=== PATIENT | female | born 1975 | race Caucasian/White ===

== ENCOUNTER 2020-06-15 18:30 | Outpatient (RCR) | payer OTHER, SELFPAY ==
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
--- NOTE | 2020-08-10 10:39 | HP.PT.NRP ---
LORELEI SHAH was seen in my office for initial evaluation on 05/29/20. The following Plan of Care was established for this patient: Initial Frequency: 1-2x /Week Initial Duration: 4 Weeks Patient/Client Instruction: Educate patient on: Condition, Plan of Care For the Purpose of:: To decrease pain, To increase ROM, To improve muscle performance and motor function, To improve ability to perform ADL's, To increase tolerance to activity/condition/position, To improve ability of physical actions for home/community/work/leisure, To improve health of tissue, To decrease soft tissue restriction, To increase flexibility/ROM, To reduce risk of recurrence, To improve ability to perform tasks related to life management Therapeutic Exercise to Include: Strength training, Balance training, Active ROM For the Purpose of:: To decrease pain, To increase ROM, To improve muscle performance and motor function, To increase tolerance to activity/condition/position, To improve performance and independence with ADL's, To improve ability of physical actions for home/community/work/leisure, To improve health of tissue, To decrease soft tissue restriction, To reduce risk of recurrence, To improve ability to perform tasks related to life management TENS: Yes IF ES: Yes Cryotherapy (ice pack, ice massage): Yes Thermo therapy (hot pack): Yes Ultrasound (thermal/non thermal): Yes For the Purpose of:: To decrease pain, To increase ROM, To improve muscle performance and motor function, To improve ability to perform ADL's, To increase tolerance to activity/condition/position, To improve ability of physical actions for home/community/work/leisure, To improve health of tissue, To decrease soft tissue restriction, To reduce risk of recurrence, To improve ability to perform tasks related to life management This patient was last seen in our office . Pertinent comments regarding their Physical therapy will appear below: Patient d/c due to under going surgery for knee> At this point I will be discontinuing this patient from physical therapy. I would be happy to see this patient again in the future if found appropriate by the physician. Thank you! Facundo Oates, PT, Cert MDT, OCS
== END 2020-06-15 19:00 | disposition home or self-care (01) ==
LOC: PT 18:30
PROVIDERS: PCP Family Medicine; Referring Provider Family Medicine; Visit Provider Family Medicine
DX: S83.104D Unspecified dislocation of right knee, subsequent encounter (principal)
CPT/HCPCS: 97014; 97110; 97161; G0283

== ENCOUNTER → 2020-10-08 18:14 | Outpatient (CLI) | payer OTHER, SELFPAY | PROVIDERS: PCP Family Medicine; Referring Provider Family Medicine; Visit Provider Family Medicine | DX: Z02.9 Encounter for administrative examinations, unspecified (principal) | CPT/HCPCS: 87635; C9803; U0003 ==

== ENCOUNTER 2020-10-20 07:00 | Outpatient (RCR) | payer OTHER, SELFPAY ==
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
--- NOTE | 2021-01-22 15:19 | HP.PTDCNRP_ITS ---
LORELEI SHAH was seen in my office for initial evaluation on 08/10/20. The following Plan of Care was established for this patient: Initial Frequency: 3x /Week Initial Duration: 3 Months Patient/Client Instruction: Educate patient on: Condition, Plan of Care For the Purpose of:: To decrease pain, To increase ROM, To improve muscle performance and motor function, To improve ability to perform ADL's, To increase tolerance to activity/condition/position, To improve performance and i ndependence with ADL's, To improve ability of physical actions for home/community/work/leisure, To improve gait and locomotor functions, To improve health of tissue, To decrease soft tissue restriction, To increase flexibility/ROM, To improve endurance, To improve balance, To improve ability to perform tasks related to life management Therapeutic Exercise to Include: Strength training, Endurance training, Balance training, Postural training, Flexibilty training, Passive ROM, Active ROM For the Purpose of:: To decrease pain, To increase ROM, To improve muscle performance and motor function, To improve ability to perform ADL's, To increase tolerance to activity/condition/position, To improve ability of physical actions for home/community/work/leisure, To improve gait and locomotor functions, To improve health of tissue, To decrease soft tissue restriction, To increase flexibility/ROM, To improve endurance, To improve balance, To improve ability to perform tasks related to life management Functional electric stimulation: Yes TENS: Yes Cryotherapy (ice pack, ice massage): Yes Vasopneumatic device: Yes For the Purpose of:: To decrease pain, To decrease swelling/inflammation, To increase ROM, To improve nutrient delivery to tissue, To increase oxygenation perfusion, To improve health of tissue, To decrease soft tissue restriction This patient was last seen in our office . Pertinent comments regarding their Physical therapy will appear below: Patient seen for PT for ACL reconstruction with protocal. Doing well thus d/c At this point I will be discontinuing this patient from physical therapy. I would be happy to see this patient again in the future if found appropriate by the physician. Thank you! Facundo Oates, PT, Cert MDT, OCS
== END 2020-10-20 19:00 | disposition home or self-care (01) ==
LOC: PT 07:00
PROVIDERS: PCP Family Medicine
DX: M23.51 Chronic instability of knee, right knee (principal)
CPT/HCPCS: 97110; 97161

== ENCOUNTER → 2021-05-03 16:14 | Outpatient (CLI) | payer OTHER, SELFPAY ==
[2021-04-14 11:38] VITALS: BMI 23.8
--- NOTE | 2021-05-03 16:27 | US_ITS ---
STUDY: ULTRASOUND OF THE FEMALE PELVIS - COMPLETE REASON FOR EXAM: Female, 45 years old. Abnormal uterine bleeding LMP: 04/22/2021. TECHNIQUE: Transabdominal and Transvaginal TECHNICAL QUALITY: Adequate. COMPARISON: None. FINDINGS: The uterus is anteverted and is in a midline position. The uterus measures 7.7 cm x 5.2 cm x 3.8 cm. There is a Nabothian cyst of the cervix. The endometrium measures 3 mm in thickness, and is hyperechoic. There is no demonstrated endometrial mass. There is heterogeneous appearance of the myometrium. There are 2 small uterine fibroids. The larger measures 1.2 cm x 1.1 cm x 1.1 cm. I.U.D. - The patient does not have an I.U.D. The right ovary is visualized. The right ovary measures 2.4 cm x 2.2 cm x 1.2 cm. There is no right ovarian cyst or ovarian mass. There is no visualized right adnexal mass or complex lesion. There is normal arterial and normal venous vascularity. The left ovary is visualized. The left ovary measures 3.1 cm x 2.6 cm x 2 cm. There is a 2 cm x 1.8 cm x 1.8 cm septated cyst. There is no visualized left adnexal mass or complex lesion. There is normal arterial and normal venous vascularity. There is no fluid in the cul-de-sac. The pre void volume of the bladder was 361 ml. US/Transvaginal Non- IMPRESSION: And heterogeneous appearance of the myometrium with 2 small uterine fibroids. Small left ovarian cyst. Electronically Signed: Shaquille Ronquillo MD at 15:00 EDT , Service support ,
--- NOTE | 2021-05-03 16:27 | US_ITS ---
STUDY: ULTRASOUND OF THE FEMALE PELVIS - COMPLETE REASON FOR EXAM: Female, 45 years old. Abnormal uterine bleeding LMP: 04/22/2021. TECHNIQUE: Transabdominal and Transvaginal TECHNICAL QUALITY: Adequate. COMPARISON: None. FINDINGS: The uterus is anteverted and is in a midline position. The uterus measures 7.7 cm x 5.2 cm x 3.8 cm. There is a Nabothian cyst of the cervix. The endometrium measures 3 mm in thickness, and is hyperechoic. There is no demonstrated endometrial mass. There is heterogeneous appearance of the myometrium. There are 2 small uterine fibroids. The larger measures 1.2 cm x 1.1 cm x 1.1 cm. I.U.D. - The patient does not have an I.U.D. The right ovary is visualized. The right ovary measures 2.4 cm x 2.2 cm x 1.2 cm. There is no right ovarian cyst or ovarian mass. There is no visualized right adnexal mass or complex lesion. There is normal arterial and normal venous vascularity. The left ovary is visualized. The left ovary measures 3.1 cm x 2.6 cm x 2 cm. There is a 2 cm x 1.8 cm x 1.8 cm septated cyst. There is no visualized left adnexal mass or complex lesion. There is normal arterial and normal venous vascularity. There is no fluid in the cul-de-sac. The pre void volume of the bladder was 361 ml. US/Pelvic (Non ) IMPRESSION: And heterogeneous appearance of the myometrium with 2 small uterine fibroids. Small left ovarian cyst. Electronically Signed: Shaquille Ronquillo MD at 15:00 EDT , Service support ,
[2021-05-03 17:49] LABS: Prolactin 11.3 ng/mL; Thyroid Stim Hormone (TSH) 1.11 uIU/mL (0.358-3.74)
== END ==
PROVIDERS: PCP Family Medicine; Referring Provider Obstetrics & Gynecology; Visit Provider Obstetrics & Gynecology
DX: N93.9 Abnormal uterine and vaginal bleeding, unspecified (principal)
CPT/HCPCS: 36415; 76830; 76856; 84146; 84443

== ENCOUNTER → 2021-05-07 | Outpatient (CLI) | payer OTHER, SELFPAY ==
[2021-05-07 14:34] VITALS: BMI 23.8
[2021-05-14 22:21] LABS: HPV APTIMA, High Risk Positive (Negative)
== END | disposition home or self-care (01) ==
LOC: LABSPEC 16:35
PROVIDERS: PCP Family Medicine; Visit Provider Obstetrics & Gynecology
DX: Z12.4 Encounter for screening for malignant neoplasm of cervix (principal)
CPT/HCPCS: 87624; 88175; G0145

== ENCOUNTER → 2021-06-03 16:26 | Outpatient (CLI) | payer OTHER, SELFPAY ==
[2021-05-07 14:34] VITALS: BMI 23.8
--- NOTE | 2021-06-03 16:33 | BI_ITS ---
MAMMOGRAPHY - BILATERAL SCREENING REASON FOR EXAM: Female, 45 years old. Routine annual screening examination. PERTINENT HISTORY: Grandmother with breast cancer. TECHNIQUE: Digital bilateral breast mariajose (3D mammographic acquisition) in the CC and MLO projections. 2-D mediolateral oblique (MLO) and craniocaudad (CC) views of both breasts were obtained. CAD: Full Field Digital Mammography with Computer Added Detection was performed. COMPARISON: None. Baseline examination. FINDINGS: Breast Composition: The breasts are heterogeneously dense, which may obscure small masses. Questionable 7.1 mm nodular density in the central slightly lateral aspect of the right breast. Correlation with ultrasound is recommended. No other significant abnormalities are identified. BI/SCRN MAMM (CAD)W/MARIAJOSE BILAT IMPRESSION: Possible 7.1 mm nodular density in the central slightly lateral aspect of the right breast. Correlation with ultrasound is recommended. ASSESSMENT CATEGORY: BIRADS Category 0: Incomplete. Need additional imaging evaluation. A letter regarding these results will be sent to the patient by the facility within 30 days. Approximately 10% of breast cancers are not detected by mammography. A normal mammogram should not delay biopsy of a clinically suspicious abnormality. [id number] Electronically Signed: Shaquille Ronquillo MD at 9:08 EDT , Service support ,
== END ==
PROVIDERS: PCP Family Medicine; Referring Provider Obstetrics & Gynecology; Visit Provider Obstetrics & Gynecology
DX: Z12.31 Encounter for screening mammogram for malignant neoplasm of breast (principal)
CPT/HCPCS: 77063; 77067

== ENCOUNTER → 2021-06-08 15:30 | Outpatient (CLI) | payer OTHER, SELFPAY ==
[2021-05-07 14:34] VITALS: BMI 23.8
--- NOTE | 2021-06-08 15:37 | US_ITS ---
STUDY: ULTRASOUND BREAST - RIGHT REASON FOR EXAM: Female, 45 years old. Abnormal screening mammogram. TECHNIQUE: Axial and longitudinal images of the RIGHT breast were performed with a high resolution ultrasound transducer. # OF IMAGES: 71 COMPARISON: Comparison is made with prior mammogram dated 06/03/2021. FINDINGS: RIGHT Breast: There is a 3 mm x 3 mm x 3 mm cyst at the 10 o''clock position of the breast at 7 cm from the nipple. US/Breast Limited Unilateral IMPRESSION: 3 mm x 3 mm x 3 mm cyst at the 10 o''clock position of the breast about 7 cm from the nipple. ASSESSMENT CATEGORY: BIRADS Category 2: Benign. A letter regarding these results will be sent to the patient by the facility within 30 days. Electronically Signed: Shaquille Ronquillo MD at 8:25 EDT , Service support ,
== END ==
PROVIDERS: PCP Family Medicine; Referring Provider Obstetrics & Gynecology; Visit Provider Obstetrics & Gynecology
DX: R92.8 Other abnormal and inconclusive findings on diagnostic imaging of breast (principal)
CPT/HCPCS: 76642

== ENCOUNTER → 2021-06-17 | Outpatient (CLI) | payer OTHER, SELFPAY ==
--- NOTE | 2021-06-17 | IMM_PTH ---
PATIENT: LORELEI SHAH LOC: [facility] U#:[id number] AGE/SX: 45/F ROOM: RE06/17/[address]: Dr. Jayashree Higuera MD : 1975 BED: DIS: 06/17/2021 SPEC #: [id number] RECD: 06/21/21 14:27 STATUS: RIDGE REQ #: [id number] TYSON: 06/17/21 00:[address]: Jayashree Higuera DEPT: IMMUNOHISTOCHEMISTRY RECD BY: Emily Monson ENTERED: 06/21/21 14:28 SP TYPE: IMMUNO OTHR DR: Dr. Bean Higuera MD Tissues: A - Endocervical B - Uterine cervix, NOS Procedures: p16 (initial) KI-67 (add) PHYSICIAN & INSTITUTION [place] [id number] SPECIMEN INFORMATION: Tissue Source: A ? ECC, B ? Cervix at 12 o?clock Clinical Info: ASCUS, HPV positive Specimen Number: [id number] A & B CPT code: 25396 x2, 60591 x2 METHODOLOGY: Deparaffinized sections of prefer/formalin-fixed tissue or PAP/DQ stained slides are incubated with monoclonal/polyclonal antibodies/oligonucleotide probes. Localization is made via biotin free immunoperoxidase method. Appropriate controls are performed and reacted as expected. Results on target cell population are indicated in the following table: RESULTS: ANTIBODY / CLONE RESULT Block A P16 (E6H4) negative Ki-67 (30-9) negative Block B P16 (E6H4) negative Ki-67 (30-9) positive, low These tests were developed and their performance characteristics determined by [facility]. They may not have been cleared or approved by the U.S. Food and Drug Administration. The FDA has determined that such clearance or approval is not necessary. The above immunohistochemical/dualISH markers are ordered and reviewed by the Pathologist. INTERPRETATION: A. Endocervix, curettings (cell block): Negative for dysplasia. B. Cervix at 12 o?clock, biopsy: Focal minimal changes suspicious for HPV cytopathic effects. SJ:orquidea 06/22/2021
--- NOTE | 2021-06-17 15:00 | CER_PTH ---
PATIENT: LORELEI SHAH [id number] AGE/SX: 45/F ROOM: RE06/17/[address]: Dr. Jayashree Higuera MD : 1975 BED: DIS: 06/17/2021 SPEC #: [id number] RECD: 06/18/21 07:58 STATUS: RIDGE REMargarita #: [id number] TYSON: 06/17/21 15:[address]: Jayashree Higuera DEPT: SURGICAL PATHOLOGY RECD BY: Jessica Patel ENTERED: 06/18/21 07:58 SP TYPE: CERV OTHR DR: Dr. Bean Higuera MD Tissues: A - Endocervical B - Uterine cervix, NOS Procedures: Surgery Specimen Level IV HEADER OPERATION: Colposcopy PRE-OP DIAGNOSIS: ASCUS, HPV positive TISSUE SUBMITTED: A ? ECC, B ? 12 o?clock MICROSCOPIC DIAGNOSIS A. ECC: Scant fragments of benign ecto- and endocervical epithelium with focal atypia, favor reactive atypia. See comment. B. Cervix, 12 o?clock, biopsy: Focal minimal changes suspicious for HPV cytopathic effects. Chronic inflammation and reactive changes. See comment. EMILY:orquidea 06/22/2021 COMMENT A & B. Immunohistochemistry ([id number]) for surrogate HPV marker (p16) supports the above diagnosis. Case has been reviewed in consultation with Dr. Bradley who concurs with the above diagnosis. IDC:AM MICROSCOPIC DESCRIPTION Slides are reviewed. GROSS DESCRIPTION A - Received is one container labeled with the patient's name and not further designated. The specimen consists of a scant amount of soft tissue. The specimen is totally submitted for cell block preparation in one cassette. B - Received in fixative is one container labeled with the patient's name and designated 12 o'clock. The specimen consists of a fragment of johnson soft tissue measuring 0.3 x 0.3 x 0.1 cm. The specimen is totally submitted in one cassette. / EMILY:orquidea 06/18/21 TC:5 CPT: 94755 x2
== END | disposition home or self-care (01) ==
LOC: LABSPEC 16:27
PROVIDERS: PCP Family Medicine; Referring Provider Obstetrics & Gynecology; Visit Provider Obstetrics & Gynecology
DX: R87.610 Atypical squamous cells of undetermined significance on cytologic smear of cervix (ASC-US) (principal)
CPT/HCPCS: 88305; 88341; 88342

== ENCOUNTER 2021-07-06 06:04 | Day surgery (SDC) | payer OTHER, SELFPAY ==
[2021-05-07 14:34] VITALS: BMI 23.8
--- NOTE | 2021-06-29 12:26 | EKG12_ITS ---
Test Reason : PREOP Blood Pressure : / mmHG Vent. Rate : 073 BPM Atrial Rate : 073 BPM P-R Int : 142 ms QRS Dur : 080 ms QT Int : 398 ms P-R-T Axes : 064 055 064 degrees QTc Int : 438 ms Normal sinus rhythm Normal ECG Confirmed by OTTO VELASCO, FOUZIA ([id number]), multimedia editor JUAN MIGUEL BARCLAY ([id number]) on 06/30/2021 9:19:22 AM Referred By: Jayashree Higuera Confirmed By:FOUZIA MENJIVAR MD
[2021-06-29 13:49] LABS: Hematocrit 41.7 % (37-47); Hemoglobin 14.2 g/dL (12.0-15.0); Mean Corp Hgb Conc 34.1 g/dL (32-36); Mean Corpuscular Hgb 30.5 pg (27.0-32.0); Mean Corpuscular Volume 89.5 fL (81-99); Mean Platelet Vol. 10.1 fl (6.2-12.0); Platelet Count 342 K/mm3 (150-450); RBC Distribution Width CV 12.8 % (11.6-14.6); RBC Distribution Width SD 42.3 fl (35.1-43.9); Red Blood Count 4.66 M/mm3 (4.2-5.4); White Blood Count 6.4 K/mm3 (4.4-11.0)
[2021-06-29 14:05] LABS: Partial Thromboplast Time 31.5 Seconds (24.1-36.2)
[2021-06-29 14:34] LABS: Prothrombin Time (Protime)PT. 12.3 SECONDS (11.7-14.9)
[2021-06-29 14:40] LABS: AST(SGOT) 20 U/L (15-37); Alanine Aminotransfer ALT/SGPT 23 U/L (13-56); Alkaline Phosphatase 49 U/L (45-117); Anion Gap 4 (5-15); BUN 10 mg/dL (7-18); BUN/Creat Ratio 14.6 RATIO (10-20); Bilirubin, Direct 0.12 mg/dL (0.00-0.30); Calcium,Total 9.5 mg/dL (8.5-10.1); Chloride 107 mmol/L (98-107); Creatinine, Serum 0.68 mg/dL (0.55-1.02); EST Glomerular Filtration Rate 99 mL/min (>60); Est Glom Filt Rate - Afr Amer 120 mL/min (>60); Globulin 3.6 g/dL (2.2-4.2); Glucose 88 mg/dL (74-106); Magnesium 2.4 mg/dL (1.6-2.6); Potassium 3.9 mmol/L (3.5-5.1); Protein, Total 7.6 g/dL (6.4-8.2); Sodium Level 139 mmol/L (136-145)
[2021-07-06] VITALS (7 sets, daily range): BP systolic 99–122; BP diastolic 64–87; PULSE 59–84; RESP 16–48; TEMP 36.1–36.9; O2SAT 99–100; BMI 24.3
[2021-07-06] MEDS: Acetaminophen 500 MG Tablet 1000 MG PO (07:17)
[2021-07-06] MEDS: Celecoxib 200 MG Capsule 400 MG PO (07:18)
[2021-07-06] MEDS: Scopolamine 1mg/72hr Patch 1 PATCH TD (07:18)
[2021-07-06] MEDS: Gabapentin 600 MG Tablet PO (07:18)
[2021-07-06] MEDS: dexAMETHasone 10 MG/ML Vial 8 MG IV (07:19)
[2021-07-06] MEDS: Phenazopyridine 95 MG Tablet 190 MG PO (07:19)
[2021-07-06] MEDS: Lactated Ringers 1,000 ML 40 ML IV (07:21)
--- NOTE | 2021-07-06 07:30 | PCM.HP.OB ---
HPI - General HPI Narrative LORELEI SHAH, is a 45 F who presents for total laparoscopic hysterectomy, bilateral salpingectomy, possible bilateral salpingoophorectomy, cystoscopy PFSH PFS Medical History (Updated 07/06/21 @ 07:[address] Jayashree Higuera MD) Alcohol use Gastric reflux Hemicrania continua History of IBS Hypoglycemia Smoker TIA (transient ischemic attack) Home Medications aspirin 81 mg tablet,delayed release 81 mg PO DAILY 04/14/21 [History Last Taken Unknown] indomethacin 25 mg capsule 25 mg PO TID PRN 04/14/21 [History Last Taken Unknown] Allergy/AdvReac Type Severity Reaction Status Date / Time Penicillins Allergy Mild hives Verified 06/25/21 11:20 narcotics Allergy Mild nausea/vomi Uncoded 06/25/21 11:20 ting Family History Grandmother CVA (cerebral vascular accident) TIA (transient ischemic attack) Breast cancer great aunt and great grandmother Uncle TIA (transient ischemic attack) CVA (cerebral vascular accident) Colon cancer Mother Diabetes Hypertension Father Hypertension Grandfather Myocardial infarction x2 Surgical History (Updated 06/25/21 @ 11:23 by Michelle Shepherd) History of myringotomy History of wisdom tooth extraction S/P ACL repair S/P tonsillectomy Status post endometrial ablation Status post tubal ligation Social History Smoking Status: Smoker, status unknown tobacco type: e-cigarettes Smokeless tobacco user: other Electronic Cigarette Use: with nicotine alcohol intake: current details: occasionally substance use type: does not use caffeine: Yes what type of physical activity do you participate in: walking frequency: daily seatbelt use: always do you feel safe at home: Yes additional social history: - Kenny History 3 Elective abortions Hx Para 2 Spontaneous abortions 1 Hx # Term Pregnancies Ectopic pregnancies Hx # Pregnancies Multiple births # of living children Past Pregnancies Del. Date Name GA/Weeks Outcome Route Bth Weight Infant Gen Labor Lgth Anesthesia Del Locatn Provider FOB 04/11/00 Demetrius 11/18/00 Antoinette Female 08/07/03 Lesly Female Delivery Date: 04/11/00 Adopted-transgender Peyton Martinez Delivery Date: 11/18/00 No notes to display Delivery Date: 08/07/03 No notes to display ROS Eyes Eyes: Reports systems reviewed and no addt'l complaints, except as documented ENT HEENT: Reports systems reviewed and no addt'l complaints, except as documented Cardiovascular Cardiovascular: Reports systems reviewed and no addt'l complaints, except as documented Respiratory/Chest Respiratory/Chest: Reports systems reviewed and no addt'l complaints, except as documented Gastrointestinal Gastrointestinal: Reports systems reviewed and no addt'l complaints, except as documented Genitourinary Genitourinary: Reports systems reviewed and no addt'l complaints, except as documented Musculoskeletal Musculoskeletal: Reports systems reviewed and no addt'l complaints, except as documented Integumentary Integumentary: Reports systems reviewed and no addt'l complaints, except as documented Neurologic Neurologic: Reports systems reviewed and no addt'l complaints, except as documented Psychiatric Psychiatric: Reports systems reviewed and no addt'l complaints, except as documented Endocrine Endocrinology: Reports systems reviewed and no addt'l complaints, except as documented Hematologic/Lymphatic Hematologic/Lymphatic: Reports systems reviewed and no addt'l complaints, except as documented Allergic/Immunologic Allergic/Immunologic: Reports systems reviewed and no addt'l complaints, except as documented Vital Signs Vital Signs Vital Signs: 07/06/21 07:09 Temperature 97 F L Temperature Source Temporal Pulse Rate 64 Respiratory Rate 16 Respiratory Pattern Normal Blood Pressure 118/87 H Blood Pressure Mean 97 Blood Pressure Source Monitor Blood Pressure Position Semi-Fowlers Blood Pressure Location Right Arm Pulse Ox 99 Oxygen Delivery Method Room Air Weight Weight: 133 lb 2.547 oz Body Mass Index (BMI) 24.3 Physical Exam Const alert, oriented x3, no apparent distress, average body habitus, healthy appearing and well nourished HEENT normocephalic and moist oral mucous membranes Head and Scalp: atraumatic Eyes PERRL and EOMs intact bilaterally Neck full ROM Resp normal respiratory effort, no retractions and no use of accessory muscles Cardio regular rate and regular rhythm GI soft to palpation, non-tender and non-distended Extremity normal to inspection and full ROM Skin no rashes or lesions noted Neuro no focal motor deficits and no sensory deficits noted Psych mental status grossly normal, affect normal, speech normal and activity/motor behavior normal Labs Labs Labs: Blood Type B POSITIVE Antibody Screen NEGATIVE Hct 41.7 % (37-47) Hgb 14.2 g/dL (12.0-15.0) Pap Smear Negative Assessment & Plan (1) Abnormal uterine bleeding (AUB): PLAN: Patient presents for total laparoscopic hysterectomy, bilateral salpingectomy, possible bilateral salpingoophorectomy, cystoscopy Cleared by PCP - needs to restart ASA on POD#1 No chances to medical history ROS negative Again reviewed risks of surgery with patient. All questions answered. Consent signed in office UPDATE- I have seen the patient and performed any clinically relevant updates to the history and physical exam. Jayashree Higuera MD
[2021-07-06 07:50] LABS: Bedside Glucose 66 mg/dL (70-110)
--- NOTE | 2021-07-06 08:00 | HYST_PTH ---
PATIENT: LORELEI SHAH LOC: [facility] [place] U#:[id number] AGE/SX: 45/F ROOM: RE07/06/[address]: Dr. Jayashree Higuera MD : 1975 BED: DIS: 07/06/2021 SPEC #: [id number] RECD: 07/06/21 12:08 STATUS: RIDGE BENNETT #: [id number] TYSON: 07/06/21 08:[address]: Jayashree Higuera DEPT: SURGICAL PATHOLOGY RECD BY: Jessica Patel ENTERED: 07/06/21 13:09 SP TYPE: HYSTERECT OTHR DR: Dr. Bean Higuera MD Tissues: Uterus, NOS Procedures: Surgery Specimen Level V HEADER OPERATION: ERAS, hysterectomy, total laparoscopic hysterectomy, bilateral salpingectomy PRE-OP DIAGNOSIS: Abnormal uterine bleeding TISSUE SUBMITTED: Uterus, cervix, bilateral fallopian tubes MICROSCOPIC DIAGNOSIS Uterus, hysterectomy: Cervix ? squamous metaplasia, nabothian cysts and mild chronic inflammation. Endometrium ? weakly proliferative to inactive endometrium with denudation. Myometrium ? adenomyosis. Fallopian tubes ? one fallopian tube with hemosalpinx. Other fallopian tube with endometriosis. AM:orquidea 07/07/2021 COMMENT Case has been reviewed in consultation with Dr. Stevenson who concurs with the above diagnosis. IDC:EMILY MICROSCOPIC DESCRIPTION Slides are reviewed. GROSS DESCRIPTION Received in fixative is one container labeled with the patient's name and designated uterus, cervix and bilateral fallopian tubes. The specimen consists of a hysterectomy specimen consisting of uterus with cervix and detached bilateral fallopian tubes. The uterus with cervix weighs 76 gm and measures 7.5 x 7 x 3.5 cm. The serosal surface is johnson, glistening. The external os is oval in contour. The ectocervical mucosa is unremarkable. The endocervical canal measures 3 cm in length and the endocervical mucosa is johnson, glistening and unremarkable. The proximal portion of the endometrial cavity is completely obliterated. The endometrial cavity is narrow and measures 2.5 cm in length and up to 1 cm in width. The endometrium is johnson, glistening without any mass lesion and measures <0.1 cm in thickness. Sections of the uterine wall do not reveal any mass lesion and anterior uterine wall measures 1 cm in thickness and posterior uterine wall measures up 2.5 cm in thickness. The detached fallopian tubes are not identified as right or left. One of the fallopian tubes measure 3.5 cm in length and 0.5 cm in diameter. The fimbrial end is identified. Sections reveal unremarkable cut surfaces. The second fallopian tube received in two pieces and measures 3.5 cm in length and 0.5 cm in diameter. The fimbrial end is present and detached portion of the fimbrial end. A plastic O-ring is noted in the second fallopian tube. Sections reveal unremarkable cut surfaces. Special Certificate Dictator sections are submitted in eight cassettes as follows: 1 - anterior cervix, 2 - posterior cervix, 3 & 4 - anterior uterine wall, 5 & 6 - posterior uterine wall, 7 - one fallopian tube, 8 - second fallopian tube received in two pieces. / EMILY:orquidea 07/06/21 TC:5 CPT: 98562
--- NOTE | 2021-07-06 08:30 | PCM.OPRPT ---
Problems Associated Problem List Diagnoses (1) Abnormal uterine bleeding (AUB): Report of Operation Date of Procedure: 07/06/21 Pre-Operative Diagnosis: Abnormal uterine bleeding Post-Operative Diagnosis: Same Surgery/Procedure Performed:: Total laparoscopic hysterectomy, bilateral salpingectomy, cystoscopy Description of Surgical Findings:: Normal-appearing uterus, cervix, bilateral tubes and ovaries blender/braze applicator: Spike Marie Type of Anesthesia: General Special Medications: Ancef 2 g Specimen's removed: Uterus, cervix, bilateral fallopian tubes Drains: Herrera Estimated Blood Loss (mL): 250 mL Description of Procedure: The patient was taken to the operating room where general anesthesia was obtained without difficulty. She was prepped and draped in the dorsolithotomy position with yellowfin stirrups. Weighted speculum was placed in the posterior aspect of the vagina and the anterior lip of the cervix was grasped with a single-tooth tenaculum. The cervix was sequentially dilated in order to accommodate a Aventicular uterine manipulator. Gloves were changed and attention was directed to the abdominal cavity. Gloves were changed. The umbilicus was instilled with 10 cc of 1% lidocaine. The umbilicus was grasped with towel clamps and a 5 mm incision was made at the base of the umbilicus. The Veress needle was inserted and intra-abdominal placement was confirmed using a water drop test. The abdomen was insufflated to 15 mmHg. A 5 mm Optiview trocar was then inserted. Additional 5 mm ports were placed in the right and left lower quadrants. The bilateral fallopian tubes were elevated and grasped. The mesosalpinx was cauterized and transected bilaterally using the LigaSure device. The fallopian tubes were amputated at the cornual region and removed. The utero-ovarian ligaments were identified bilaterally. These were cauterized and transected with the LigaSure. This was followed by the round ligament, which was cauterized and transected in a similar fashion. The anterior leaf of the broad ligament was entered and the bladder flap dissected off of the lower uterine segment and cervix without complications. The uterine arteries bilaterally were skeletonized, cauterized, and transected. At this time, the uterus was blanched effectively demonstrating that the blood supply to the uterus had been terminated. The colpotomy cup was made with the monopolar L-hook and carried around the entire cervicovaginal junction until the cervix and uterus were released from the vagina. The cervix and uterus were removed from the abdominal cavity through the vagina. A pneumooccluder was then placed in the vagina. The vaginal cuff was inspected and hemostasis was obtained with the LigaSure. Attention was then directed to the vagina. Long Allis clamps were used to grasp the vaginal cuff. 0 Vicryl suture was used to place angle sutures bilaterally. The remainder of the cuff was closed in a [id number] fashion using 0 Vicryl suture with special attention paid to incorporating the posterior peritoneum. Attention was then directed to the pelvis to perform a cystoscopy. Herrera catheter was removed and the cystoscope was introduced into the bladder. The bladder was inspected and no evidence of trauma was noted. Vigorous spill was noted bilaterally from the ureters. The cystoscope was then removed from the bladder. Gloves were changed. The laparoscope was reintroduced into the abdominal cavity and the pelvis was copiously irrigated to clear out any clots and debris. Hemostasis was obtained using the LigaSure device. Hemostasis was noted. Jasvir was placed over the surgical sites and hemostasis was again noted. All the instruments were subsequently removed from the patient?s abdomen and vagina, and the 12-mm fascial defect was closed with a #0 Vicryl stitch, and the five skin incisions were closed with #4-0 Monocryl for excellent hemostasis and reapproximation. All counts were correct x2. The patient was awakened and taken to the recovery room in stable condition. Complications None apparent Admit VTE Documentation VTE Present on Admission: No VTE Mechan Device Prophylaxis: SCD's VTE Pharm Prophylaxis ordered?: No Procedures Urinary/Genital 52xxx-59xxx: [id number] TLH+BS/O <250gr uterus
[2021-07-06] MEDS: Cefazolin 2 GM in 0.9% Normal Saline 100 ML IV (08:32)
--- NOTE | 2021-07-06 08:33 | PCM.DC ---
Discharge Instructions Diet Discharge Diet: No restrictions Activity Discharge Activity: May Not Drive (While on narcotic pain medication) and May Shower May resume sexual activity in: 8 weeks Lifting Restrictions: No lifting greater than 20 pounds until postop visit Dressing / Incision Call your doctor if your incision/area has: Continuous Slow Oozing, Sudden Increased Bleeding, Increased Pain/ Swelling, Increased Redness, Foul Smelling Discharge and Swelling at the incision site Call your doctor if you observe: Fever of 101 or Higher, Inability to urinate, Using more than 1 pad per hour, Shortness of breath, Dizziness, Fainting spells, Chest pain and Uncontrolled pain Remove Dressing in: 1 week Cleanse incision/area with: Soap & Water Follow Up Care Please Follow Up With: Jayashree Higuera MD When: 2 weeks Test Results: Test results from this visit will be discussed in further detail at your follow-up appointment, if applicable. Discharge Plan Admission Attending Provider: Jayashree Higuera Primary Care Provider: Bean Higuera Instructions Patient Instructions: Discharge Instructions for ... Discharge Orders/Prescriptions Prescriptions: New ibuprofen 800 mg tablet 800 mg PO Q8H PRN (Reason: pain) Qty: 30 RF: 1 oxycodone 5 mg capsule 5 mg PO Q6H PRN (Reason: pain) 7 Days Qty: 15 RF: 0 Continued indomethacin 25 mg capsule 25 mg PO TID PRN (Reason: hemacrania continua/ headache) RF: 0 aspirin [Adult Low Dose Aspirin] 81 mg tablet,delayed release (DR/EC) 81 mg PO DAILY RF: 0 Referrals / Follow Up: Bean Higuera MD [Primary Care Provider] - Disposition Disposition (needs filled in before D/C Order can be placed): Home, Self Care
[2021-07-06] MEDS: Lubricating Jelly 60 GM Tube 30 GM TOPICAL (08:56)
[2021-07-06] MEDS: Lactated Ringers 1,000 ML 70 ML IV (09:00)
[2021-07-06] MEDS: Ondansetron 4 MG/2 ML Vial IV (10:07)
[2021-07-06] MEDS: Bupivacaine 0.25% 30 ML Vial (10:45)
[2021-07-06] MEDS: Lactated Ringers 1,000 ML 75 ML IV (12:01)
[2021-07-06] MEDS: HYDROcodone Bitartrate/Apap 5/325 Tablet PO (12:40)
== END 2021-07-06 13:36 | disposition home or self-care (01) ==
LOC: SDC 06:05 → AC 06:07
PROVIDERS: Anesthesiology; PCP Family Medicine; Referring Provider Obstetrics & Gynecology; Visit Provider Obstetrics & Gynecology
PROC: 0UT94ZZ Resection of Uterus, Percutaneous Endoscopic Approach (ICD-10-PCS; CPT 58571; principal; 2021-07-06 07:40)
DX: N87.9 Dysplasia of cervix uteri, unspecified (principal); N88.8 Other specified noninflammatory disorders of cervix uteri; N72 Inflammatory disease of cervix uteri; N80.0 Endometriosis of uterus; N83.6 Hematosalpinx; N80.2 Endometriosis of fallopian tube; K21.9 Gastro-esophageal reflux disease without esophagitis; E16.2 Hypoglycemia, unspecified; F17.290 Nicotine dependence, other tobacco product, uncomplicated; Z86.73 Personal history of transient ischemic attack (TIA), and cerebral infarction without residual deficits
CPT/HCPCS: 00840; 58571; 36415; 80048; 80076; 82962; 83735; 85027; 85610; 85730; 86850; 86900; 86901; 88307; 93005; J7120; J2405; J3475

== ENCOUNTER → 2022-09-01 | Outpatient (CLI) | payer OTHER, SELFPAY ==
--- NOTE | 2022-09-01 16:19 | BI_ITS ---
MAMMOGRAPHY - BILATERAL SCREENING REASON FOR EXAM: Female, 46 years old. Routine annual screening examination. PERTINENT HISTORY: Grandmother with breast cancer. TECHNIQUE: Digital bilateral breast mariajose (3D mammographic acquisition) in the CC and MLO projections. 2-D mediolateral oblique (MLO) and craniocaudad (CC) views of both breasts were obtained. CAD: Full Field Digital Mammography with Computer Added Detection was performed. COMPARISON: Comparison is made with prior study dated 06/03/2021. FINDINGS: Breast Composition: The breasts are heterogeneously dense, which may obscure small masses. There are no dominant masses or suspicious calcifications. Stable 7 mm nodular density in the central slightly lateral aspect of the right breast. This was demonstrated to be a small cyst on prior sonogram. No other significant abnormalities are identified. There has been no significant change since the prior study. BI/SCRN MAMM (CAD)W/MARIAJOSE BILAT IMPRESSION: Stable bilateral screening mammogram. Yearly follow-up mammogram recommended. (A) ASSESSMENT CATEGORY: BIRADS Category 2: Benign. A letter regarding these results will be sent to the patient by the facility within 30 days. Approximately 10% of breast cancers are not detected by mammography. A normal mammogram should not delay biopsy of a clinically suspicious abnormality. [id number] Electronically Signed: Shaquille Ronquillo MD at 8:37 EST ,
== END | disposition home or self-care (01) ==
LOC: OPBI 09-02 07:40
PROVIDERS: PCP Nurse Practitioner Family; Referring Provider Obstetrics & Gynecology; Visit Provider Obstetrics & Gynecology
DX: Z12.31 Encounter for screening mammogram for malignant neoplasm of breast (principal)
CPT/HCPCS: 77063; 77067

== ENCOUNTER 2022-11-18 06:52 | Day surgery (SDC) | payer OTHER, SELFPAY ==
[2022-11-18] MEDS: Lactated Ringers 1,000 ML 15 ML IV (07:10)
[2022-11-18 07:25] VITALS: BP 134/87; PULSE 82; RESP 17; TEMP 36.2; O2SAT 98; BMI 26.6
--- NOTE | 2022-11-18 07:36 | PCM.HP.BLA ---
History and Physical Date of Admission: 11/18/22 Intake Vital Signs ? 08/29/2208:06 Height 5 ft 2 in Weight: 150 lb BMI 27.4 BP 133/85 H Blood Pressure Location Rt brachial Position Sitting Respiration 16 Pulse 73 Pulse Source Monitor Temp 97.5 F L Temp Source Temporal Pulse Oximetry (%) 100 Oxygen Delivery Method room air Intake Visit Reasons:?Consult Chief Complaint: Cscope X Ray Nurse Required: No Is patient in pain?: No Allergies Penicillins Allergy (Mild, Verified 08/29/22 08:07) hivesnarcotics Allergy (Mild, Uncoded 08/29/22 08:07) nausea/vomiting Medications aspirin 81 mg tablet,delayed release (Adult Low Dose Aspirin) 81 mg PO DAILY heart 04/14/21 [History Confirmed 08/29/22] indomethacin 25 mg capsule 25 mg PO TID PRN hemacrania continua/ headache 04/14/21 [History Confirmed 08/29/22] naproxen sodium 220 mg capsule (Aleve) 220 mg PO BID PRN 08/18/22 [History Confirmed 08/29/22] PFSH Medical History? Alcohol use Gastric reflux Hemicrania continua History of IBS Hypoglycemia Smoker TIA (transient ischemic attack) Surgical History? H/O bilateral salpingectomy H/O cystoscopy H/O total hysterectomy History of myringotomy History of wisdom tooth extraction S/P ACL repair S/P tonsillectomy Status post endometrial ablation Status post tubal ligation Family History? Grandmother CVA (cerebral vascular accident) TIA (transient ischemic attack) Breast cancer ?? ? great aunt and great grandmotherUncle TIA (transient ischemic attack) CVA (cerebral vascular accident) Colon cancerMother Diabetes HypertensionFather HypertensionGrandfather Myocardial infarction ?? ? x2 Social History? Smoking Status:? Current every day smoker Smokeless tobacco user:? dissolvable tobacco and other Electronic Cigarette Use:? with nicotine alcohol intake:? current details:? occasionally substance use type:? does not use caffeine:? Yes what type of physical activity do you participate in:? walking frequency:? daily seatbelt use:? always do you feel safe at home:? Yes additional social history:? - Kenny Female Reproductive History Menstrual Ab spontaneous: 1 HPI HPI HPI: Patient is a 46-year-old female here for colonoscopy.? Had a colonoscopy about 10 years ago.? Patient does report a family history of colon cancer in her uncle.? Patient denies any blood in the stool or abdominal pain. ROS General General: Yes weight change; No appetite, fatigue, colon cancer, breast cancer or weakness HEENT HEENT: No difficulty swallowing, eye injury, eye surgery, swollen glands or hoarseness Endo Endocrine: No thyroid disease, diabetes mellitus, thyroid cancer, Hair loss, heat intolerance or cold intolerance Skin Skin: No rash or changing moles Musc Musculoskeletal: No back problems, arthritis, rheumatoid arthritis, gout or joint pain Cardio Cardiovascular: No murmur, pacemaker, heart disease, atrial fibrillation, high blood pressure, heart attack, heart stent, palpitations, shortness of breat with exertion or chest pain Psych Psychiatric: No depression, anxiety or hearing voices Resp Respiratory: No shortness of breath, No sleep apnea, No cough, No COPD, No asthma, No emphysema and No wheezing Gastro Gastrointestinal: No abdominal pain, No nausea or vomiting, Yes diarrhea, No constipation, No blood in stool, No acid reflux, Yes hemorrhoids, No ulcers, No gallbladder problem and No black,tarry stools Additional Details: IBS Matt Hematologic: No blood thinners, No blood disorders, No bleeding, No anemia and No blood clots Additional Details: Baby Aspirin Neuro Neurologic: No system reviewed and no additional complaints, except as documented, No as per HPI, No abnormal gait, No abnormal hearing, No abnormal movements, No abnormal speech, No behavioral changes, No burning sensations, No confusion, No convulsions, No disequilibrium, No dizziness, No localized weakness, No frequent falls, No headache(s), No lack of coordination, No loss of vision, No memory loss, No numbness, No other visual disturbances, No radicular pain, No restless legs, No sensory deficit, No syncope, No tingling, No tremor(s), No weakness and Yes other (Hx TIA) Exam Const General: cooperative Orientation: alert and oriented x3 HENMT Head: normal to inspection Neck Neck: normal visual inspection and full ROM Chest Chest palpation & inspection: normal inspection of the chest Resp Effort & Inspection: normal respiratory effort Auscultation: clear to auscultation bilaterally Cardio Rate: regular rate Rhythm: regular rhythm GI Inspection: non-distended Palpation: soft and nontender Skin General: no rashes or lesions noted Neuro General: patient alert and patient oriented x3 Extrem General: full ROM Psych Appearance: grossly normal Mental Status: mental status grossly normal Assessment and Plan Assessment and Plan (1) Screen for colon cancer: ?Status:?Acute ?Plan: The patient did have a colonoscopy 10 years ago due to family history but I did inform her that this was an uncle and with one second-degree relative with cancer she should be treated as average risk.? I do recommend her having a colonoscopy as she turns 47 in a few months.? I did inform her that she should call her insurance company to ensure that her insurance company covers screening colonoscopies at age 47 instead of 52. I explained endoscopy in detail to the patient.? I explained the risks including but not limited to stroke or heart attack with anesthesia, perforation of the GI tract, bleeding, infection.? I explained that any of these could necessitate further emergency surgery.? The patient understands and all questions were answered sufficiently.? The patient wishes to proceed with procedure. Otto Ambrocio MD Pager: [facility] [address] [place] [address], [address] [place] [address] Office: I have examined the patient and the H&P has been reviewed. There are no clinical changes since date of exam.
--- NOTE | 2022-11-18 08:11 | OP.COLON_ITS ---
Patient Name: Bruce Carroll Procedure Date: 11/18/2022 7:47 AM Date of : 1975 Age: 47 Procedure: Colonoscopy Indications: Screening for colorectal malignant neoplasm Providers: Otto Ambrocio MD Referring MD: Otto Ambrocio MD Medicines: Monitored Anesthesia Care Patient Profile: This is a 47 year old female. Refer to note in patient chart for documentation of history and physical. Last Colonoscopy: more than 10 years ago. Complications: No immediate complications. Procedure: Pre-Anesthesia Assessment: - Prior to the procedure, a History and Physical was performed, and patient medications and allergies were reviewed. The patient's tolerance of previous anesthesia was also reviewed. The risks and benefits of the procedure and the sedation options and risks were discussed with the patient. All questions were answered, and informed consent was obtained. Prior Anticoagulants: The patient has taken no previous anticoagulant or antiplatelet agents. After reviewing the risks and benefits, the patient was deemed in satisfactory condition to undergo the procedure. After I obtained informed consent, the scope was passed under direct vision. Throughout the procedure, the patient's blood pressure, pulse, and oxygen saturations were monitored continuously. The adult colonoscope was introduced through the anus and advanced to the cecum, identified by appendiceal orifice and ileocecal valve. The colonoscopy was performed without difficulty. The patient tolerated the procedure well. The quality of the bowel preparation was good. Scope In: 7:57:06 AM Scope Withdrawal Time 0 hours 6 minutes 1 second Scope Out: 8:08:43 AM Total Procedure Duration Time 0 hours 11 minutes 37 seconds Findings: The entire examined colon appeared normal on direct and retroflexion views. Impression: - The entire examined colon is normal on direct and retroflexion views. - No specimens collected. Recommendation: - Discharge patient to home. - Resume previous diet. - Continue present medications. - Repeat colonoscopy in 10 years for screening purposes. Procedure Code(s): --- Professional --- 09255, Colonoscopy, flexible; diagnostic, including collection of specimen(s) by brushing or washing, when performed (separate procedure) Diagnosis Code(s): --- Professional --- Z12.11, Encounter for screening for malignant neoplasm of colon CPT copyright 2017 [employer]. All rights reserved. The codes documented in this report are preliminary and upon outside sales account manager review may be revised to meet current compliance requirements. Otto Ambrocio MD 11/18/2022 8:11:12 AM This report has been signed electronically. Number of Addenda: 0 Note Initiated On: 11/18/2022 7:47 AM
--- NOTE | 2022-11-18 08:12 | OP.CCLET_ITS ---
11/18/2022 Carlos Norton Re : Colonoscopy procedure for Bruce Carroll Dear Joe This procedure was performed on Friday, November 18, 2022. My impressions and recommendations are as follows: Impressions : - The entire examined colon is normal on direct and retroflexion views. - No specimens collected. Recommendations : - Discharge patient to home. - Resume previous diet. - Continue present medications. - Repeat colonoscopy in 10 years for screening purposes. My findings are described in the full procedure note, which is enclosed. If I can be of further assistance, please feel free to contact me at Doctor phone number(s): , Work: . Sincerely, Otto Ambrocio MD 11/18/2022 8:11:12 AM This report has been signed electronically.
[2022-11-18 08:13] VITALS: BP 105/66; BP 134/87; PULSE 72; RESP 16; TEMP 36.2; O2SAT 99
[2022-11-18 08:18] VITALS: BP 104/72; BP 134/87; PULSE 69; RESP 16; O2SAT 99
[2022-11-18 08:23] VITALS: BP 134/87; BP 94/83; PULSE 75; RESP 16; O2SAT 99
[2022-11-18 08:28] VITALS: BP 115/83; BP 134/87; PULSE 77; RESP 16; TEMP 36.3; O2SAT 99
[2022-11-18 08:47] VITALS: BP 134/87
== END 2022-11-18 08:55 | disposition home or self-care (01) ==
LOC: EN 06:54 → AC 06:56
PROVIDERS: PCP Nurse Practitioner Family; Referring Provider Surgery; Visit Provider Surgery
PROC: 0DJD8ZZ Inspection of Lower Intestinal Tract, Via Natural or Artificial Opening Endoscopic (ICD-10-PCS; CPT 45378; principal; 2022-11-18 07:55)
DX: Z12.11 Encounter for screening for malignant neoplasm of colon (principal); K21.9 Gastro-esophageal reflux disease without esophagitis; F17.200 Nicotine dependence, unspecified, uncomplicated; Z79.82 Long term (current) use of aspirin; Z79.899 Other long term (current) drug therapy; Z86.73 Personal history of transient ischemic attack (TIA), and cerebral infarction without residual deficits; Z80.0 Family history of malignant neoplasm of digestive organs
CPT/HCPCS: 45378; J7120; J2405

== ENCOUNTER → 2023-07-25 | Outpatient (CLI) | payer OTHER, SELFPAY | END | disposition home or self-care (01) | PROVIDERS: PCP Nurse Practitioner Family; Visit Provider Nurse Practitioner Family | DX: R39.9 Unspecified symptoms and signs involving the genitourinary system (principal) | CPT/HCPCS: 87086; 87088; 87186 ==

== ENCOUNTER 2024-03-18 19:13 | Emergency (ER) | payer OTHER, SELFPAY ==
[2024-03-18 19:14] VITALS: BP 164/97; PULSE 140; RESP 18; TEMP 36.8; O2SAT 93; BMI 28.3
[2024-03-18 19:31] LABS: Mucous, Urine 0 SEEN /hpf (<or=2+); Red Blood Cells-Urine 0 SEEN /hpf (0-5); Squamous Epithelial Cells - UA 0 SEEN /hpf (5-10); White Blood Cells 0 SEEN /hpf (0-5)
[2024-03-18 19:32] LABS: Color, Urine Straw (Yellow); Glucose, Dipstick Normal (Normal); Ketone-Dipstick Negative (Negative); Leukocyte Esterase-Dipstick Negative /ul (Negative); Nitrite-Dipstick Negative (Negative); Occult Blood-Urine Negative /ul (Negative); Protein-Dipstick Negative (Negative); Urine Bilirubin Dipstick Negative (Negative); Urine Clarity Clear (Clear); Urine Urobilinogen Normal (Normal); Urine pH 6.5 (5.0 - 8.0)
[2024-03-18 19:41] LABS: Bacteria 1+ /hpf (None Seen)
[2024-03-18 19:49] LABS: Absolute Lymphocyte Count 2.68 X10^3/uL (0.83-4.51); Absolute Neutrophil Count 5.4 X10^3/uL (2.0-7.7); Basophil# 0.07 X10^3/uL; Basophil% 0.8 % (0-1); Eosinophils% 2.2 % (0-5); Hematocrit 43.5 % (37-47); Hemoglobin 14.1 g/dL (12.0-15.0); Lymphocyte # 2.68 X10^3/ul (0.83-4.51); Lymphocyte % 29.6 % (19-41); Mean Corp Hgb Conc 32.4 g/dL (32-36); Mean Corpuscular Volume 89.3 fL (81-99); Mean Platelet Vol. 10.4 fl (6.2-12.0); Monocyte# 0.65 X10^3/uL; Monocyte% 7.2 % (0-10); NRBC Flagged by Analyzer 0 % (0-5); Neutrophil # 5.42 X10^3/uL (2.7-7.7); Neutrophil % 59.9 % (47-70); Platelet Count 374 K/mm3 (150-450); RBC Distribution Width CV 13.2 % (11.6-14.6); RBC Distribution Width SD 43.3 fl (35.1-43.9); Red Blood Count 4.87 M/mm3 (4.2-5.4); White Blood Count 9.1 K/mm3 (4.4-11.0)
[2024-03-18 20:06] LABS: ALB/GLOB Ratio 1.3 RATIO (0.9-2.4); AST(SGOT) 21 U/L (15-37); Alanine Aminotransfer ALT/SGPT 31 U/L (13-56); Albumin, Serum 4.2 g/dL (3.2-5.0); Alkaline Phosphatase 79 U/L (45-117); Anion Gap 5 (5-15); BUN 12 mg/dL (7-18); BUN/Creat Ratio 14.5 RATIO (10-20); Calcium,Total 9.6 mg/dL (8.5-10.1); Chloride 109 mmol/L (98-107); Creatinine, Serum 0.83 mg/dL (0.55-1.02); EST Glomerular Filtration Rate 79 mL/min (>60); Est Glom Filt Rate - Afr Amer 95 mL/min (>60); Estimated Creatinine Clearance 77.84 ml/min; Globulin 3.3 g/dL (2.2-4.2); Glucose 85 mg/dL (74-106); Potassium 4.1 mmol/L (3.5-5.1); Protein, Total 7.5 g/dL (6.4-8.2); Sodium Level 141 mmol/L (136-145)
[2024-03-18 20:28] LABS: Internal QC Validated? YES +Cl - CLEAR BKGD; Pregnancy, Serum, hCG Quali. NEGATIVE Negative
[2024-03-18 20:30] LABS: Lipase 95 U/L (13-75)
--- NOTE | 2024-03-18 20:38 | ED.VIS.GI ---
HPI HPI - GI History of Present Illness Chief Complaint: Abd Pain Narrative Narrative: 48-year-old female presenting with epigastric pain. She states she ate macaroni and cheese, macaroni salad, potato salad, peanut butter and banana pudding at a barbecue today. She states she also was ate sloppy [employer]. She states she ate too much. She has symptoms of GERD. PFSH PFS Medical History History of pain when walking History of edema Alcohol use Hypoglycemia Hemicrania continua Gastric reflux History of IBS Smoker TIA (transient ischemic attack) Home Medications ?Medication ?Instructions ?Recorded ?Last Taken ?Type aspirin 81 mg tablet,delayed 81 mg PO DAILY heart 04/14/21 Unknown History release (Adult Low Dose Aspirin) indomethacin 25 mg capsule 25 mg PO TID PRN hemacrania 04/14/21 Unknown History continua/ headache naproxen sodium 220 mg capsule 220 mg PO BID PRN Pain 08/18/22 Unknown History (Aleve) black cohosh 540 mg capsule 20 mg PO DAILY 03/18/24 Unknown History dextroamphetamine-amphetamine ER 25 mg PO DAILY 03/18/24 Unknown History 25 mg 24hr capsule,extend release dicyclomine 20 mg tablet 20 mg PO TID PRN abdominal pain 03/18/24 Unknown Rx #14 tabs omeprazole 20 mg capsule,delayed 20 mg PO DAILY 03/18/24 Unknown History release Allergy/AdvReac Type Severity Reaction Status Date / Time Opioids - Morphine Analogues Allergy Mild NAUSEA/VOMI Verified 03/18/24 19:16 (narcotics) TING Penicillins Allergy Mild hives Verified 03/18/24 19:16 Family History Grandmother CVA (cerebral vascular accident) TIA (transient ischemic attack) Breast cancer great aunt and great grandmother Uncle TIA (transient ischemic attack) CVA (cerebral vascular accident) Colon cancer Mother Diabetes Hypertension Father Hypertension Grandfather Myocardial infarction x2 Surgical History H/O cystoscopy H/O bilateral salpingectomy H/O total hysterectomy History of myringotomy History of wisdom tooth extraction S/P tonsillectomy Status post endometrial ablation Status post tubal ligation S/P ACL repair Social History Smoking Status: Current every day smoker tobacco type: e-cigarettes Smokeless tobacco user: dissolvable tobacco and other Electronic Cigarette Use: with nicotine alcohol intake: current details: occasionally substance use type: does not use caffeine: Yes what type of physical activity do you participate in: walking frequency: daily seatbelt use: always do you feel safe at home: Yes additional social history: - Kenny EXAM Physical Exam Const Vital Signs: 03/18/24 19:14 03/18/24 21:04 Temperature 98.3 F Temperature Source Temporal Pulse Rate 140 H 73 Respiratory Rate 18 18 Blood Pressure 164/97 H 136/85 H Blood Pressure Mean 119 102 Pulse Ox 93 96 Oxygen Delivery Method Room Air Room Air MDM MDM MDM Narrative Medical decision making narrative: Patient presenting with abdominal pain after eating macaroni and cheese, macaroni salad, potato salad, peanut butter and banana pudding at lunch today at a barbecue. Differential includes gastritis, GERD, cholelithiasis, cholecystitis, gas, constipation, UTI, GERD. CBC was obtained to assess white blood cell count, hemoglobin, platelets. CMP to assess liver function, renal function, electrolytes, glucose. Lipase to assess for pancreatitis. Urinalysis to assess for UTI. CBC shows normal white blood cell count 9.1. Hemoglobin 14.1. Platelets normal 374. Renal function electrolytes within normal limits. LFTs are normal. Lipase 95 and is marginally elevated. Urinalysis negative for infection. hCG negative. Patient given GI cocktail symptoms help but she is describing a burning sharp pain initially. She states this made the pain worse. She states she is very uncomfortable now. So we did give her morphine, Zofran. Will obtain a CT of the abdomen pelvis with IV contrast. CT of the abdomen pelvis shows enteritis. Radiologist said there is possible thickening of the gallbladder however she does not have any right upper quadrant pain and her LFTs are normal. I do not believe she has cholelithiasis or cholecystitis. Discussed with the patient that the likely source of her pain was the amount of food that she ate but she still believes she has a gastric ulcer. I explained to her that the GI cocktail should have helped for this if it was a stomach ulcer. I recommended that she use Pepcid in the short-term on top of her PPI. I will prescribe her Bentyl. She states she does not need any Zofran because she is not nauseous. I recommended diet modification to avoid further abdominal pain. Return precautions were discussed. Impression: 1. Abdominal pain. Lab Data Attestation: I reviewed the patient's lab results. Labs: Laboratory Results - last 24 hr 03/18/24 03/18/24 19:25 19:44 WBC 9.1 RBC 4.87 Hgb 14.1 Hct 43.5 MCV 89.3 MCH 29.0 MCHC 32.4 RDW Std Deviation 43.3 RDW Coeff of Rahul 13.2 Plt Count 374 MPV 10.4 Immature Gran % (Auto) 0.300 Neut % (Auto) 59.9 Lymph % (Auto) 29.6 [place] % (Auto) 7.2 Eos % (Auto) 2.2 Baso % (Auto) 0.8 Absolute Neuts (auto) 5.4 Absolute Lymphs (auto) 2.68 Nucleated RBC % 0 Sodium 141 Potassium 4.1 Chloride 109 H Carbon Dioxide 27.0 Anion Gap 5 BUN 12 Creatinine 0.83 Estim Creat Clear Calc 77.84 Est GFR (MDRD) Af Amer 95 Est GFR (MDRD) Non-Af 79 BUN/Creatinine Ratio 14.5 Glucose 85 Calcium 9.6 Total Bilirubin 0.60 AST 21 ALT 31 Alkaline Phosphatase 79 Total Protein 7.5 Albumin 4.2 Globulin 3.3 Albumin/Globulin Ratio 1.3 Lipase 95 H Serum , Qual NEGATIVE Urine Color Straw Urine Clarity Clear Urine pH 6.5 Ur Specific [place] 1.010 Urine Protein Negative Urine Glucose (UA) Normal Urine Ketones Negative Urine Occult Blood Negative Urine Nitrite Negative Urine Bilirubin Negative Urine Urobilinogen Normal Ur Leukocyte Esterase Negative Urine RBC 0 SEEN Urine WBC 0 SEEN Ur Squamous Epith Cells 0 SEEN Urine Bacteria 1+ Urine Mucus 0 SEEN Radiography Diagnostic Testing: Clinical Impression(s) from Imaging Studies Abdomen/Pelvis CT 03/18/24 21:30 IMPRESSION: 1. Mild thickening of proximal small bowel which may represent enteritis. 2. Decreased attenuation of the liver which may represent fatty infiltration. 3. Questionable mild gallbladder wall thickening. If there is a clinical concern for acute cholecystitis, recommend follow-up with right upper quadrant ultrasound. Electronically Signed: Jaxon Shelley DO at 22:40 EDT , Discharge Plan Triage Chief Complaint: Abd Pain ED Provider: Ang Montano Dx/Rx/DC Orders Instructions: ED Abdominal Pain Unkn Cause Fem Prescriptions: New dicyclomine 20 mg tablet 20 mg PO TID PRN (Reason: abdominal pain) Qty: 14 0RF No Action indomethacin 25 mg capsule 25 mg PO TID PRN (Reason: hemacrania continua/ headache) Rx Instructions: administer with food or milk aspirin [Adult Low Dose Aspirin] 81 mg tablet,delayed release (DR/EC) 81 mg PO DAILY naproxen sodium [Aleve] 220 mg capsule 220 mg PO BID PRN (Reason: Pain) black cohosh 540 mg capsule 20 mg PO DAILY omeprazole 20 mg capsule,delayed release(DR/EC) 20 mg PO DAILY dextroamphetamine-amphetamine 25 mg capsule,extended release 24hr 25 mg PO DAILY Primary Care Provider: Grey Borges Referrals: Grey Borges MD [Primary Care Provider] - Print Language: Estonian Disposition Disposition: Home, Self Care
[2024-03-18] MEDS: Mag Hydrox/Al Hydrox/Simeth 30 ML UDC PO (20:59)
[2024-03-18 21:04] VITALS: BP 136/85; PULSE 73; RESP 18; O2SAT 96
--- NOTE | 2024-03-18 21:30 | CT_ITS ---
INDICATION: abdominal pain EXAMINATION: CT Abdomen And Pelvis W/ Contrast Injection TECHNIQUE: Helically acquired images were obtained of the abdomen and pelvis with sagittal and coronal reconstructed images. Individualized dose optimization techniques were used for this CT. IV contrast dosage and agent: 100 mL of Isovue-370. Oral contrast: None. COMPARISON: None. FINDINGS: VESSELS: No abdominal aortic aneurysm or dissection. LIVER: No evidence of a mass. No intrahepatic or extrahepatic biliary duct dilation. Diffuse decreased attenuation. GALLBLADDER: No calcified stones. Questionable mild gallbladder wall thickening. PANCREAS: No focal solid or cystic mass. No evidence of pancreatitis. SPLEEN: Normal. ADRENAL GLANDS: Normal. KIDNEYS AND URETERS: No urinary tract stone. No hydronephrosis or hydroureter. No significant asymmetric perinephric stranding. URINARY BLADDER: Unremarkable. BOWEL: Mild diverticulosis with no evidence of diverticulitis. Appendix appears normal. No evidence of bowel obstruction. Mild thickening of proximal small bowel loops. REPRODUCTIVE ORGANS: No evidence of a pelvic mass. PERITONEUM: No intraabdominal free fluid or free air. LYMPH NODES: No pathologically enlarged mesenteric or retroperitoneal lymph nodes. ABDOMINAL WALL: Small fat-containing umbilical hernia. BONES: No acute abnormality. LOWER CHEST: Visualized lung bases are unremarkable. CT/Abdomen/Pelvis W IV Cont ONLY IMPRESSION: 1. Mild thickening of proximal small bowel which may represent enteritis. 2. Decreased attenuation of the liver which may represent fatty infiltration. 3. Questionable mild gallbladder wall thickening. If there is a clinical concern for acute cholecystitis, recommend follow-up with right upper quadrant ultrasound. Electronically Signed: Jaxon Shelley DO at 22:40 EDT ,
[2024-03-18] MEDS: Morphine 4 MG/ML Syringe IV (21:34)
[2024-03-18] MEDS: Ondansetron 4 MG/2 ML Vial IV (21:34)
[2024-03-18 23:00] VITALS: BP 139/90; PULSE 78; RESP 16; TEMP 36.6; O2SAT 98
[2024-03-18] MEDS: Dicyclomine 10 MG Capsule 20 MG PO (23:14)
== END 2024-03-18 23:17 | disposition home or self-care (01) ==
PROVIDERS: Emergency Provider Student in an Organized Health Care Education/Training Program; PCP Family Medicine; Visit Provider Student in an Organized Health Care Education/Training Program
DX: R10.9 Unspecified abdominal pain (principal); K52.9 Noninfective gastroenteritis and colitis, unspecified; K21.9 Gastro-esophageal reflux disease without esophagitis; F17.290 Nicotine dependence, other tobacco product, uncomplicated
CPT/HCPCS: 74177; 80053; 81001; 83690; 84703; 85025; 96374; 96375; 99282; Q9967; A4216; J2405

== ENCOUNTER → 2025-02-14 | Outpatient (CLI) | payer OTHER, SELFPAY ==
--- NOTE | 2025-02-14 16:04 | US_ITS ---
PROCEDURE: THYROID (USTHY), 02/14/2025 REASON FOR EXAM: PARTHA THYROIDITIS TECHNIQUE: Grayscale and color Doppler imaging of the thyroid was performed. COMPARISON: None FINDINGS: Right lobe measures 5.3 x 1.7 x 1.6 cm. Heterogeneous background echotexture. Hypervascularity noted. Nodules as below: * Left lobe measures 5.9 x 1.6 x 1.9 cm. Heterogeneous background echotexture. Hypervascularity noted. Nodules as below: *Lower pole, 3.1 x 2.3 x 2.3 cm, mostly solid, mostly isoechoic, TI-RADS 3. Isthmus measures 4 mm in thickness. US/Thyroid IMPRESSION: 1. Assessment is TI-RADS 3. The single 3.1 cm nodule at the LEFT lower pole me ets criteria for FNA which is recommended as per the below. 2. appearance of the glandular parenchyma suggestive of thyroiditis as suspecte d clinically. Management recommendations for TI-RADS 3 findings: FNA if = 2.5 cm; Follow if = 1.5 cm at 1, 3, and 5 years. Recommendations per ACR Thyroid Imaging, Reporting and Data System (TI-RADS): Rosa garcia Paper of the ACR TI-RADS Committee, 2017 ([email or web address]/[email or web address]) Reading Location: [id number]
== END | disposition home or self-care (01) ==
LOC: US 16:03
PROVIDERS: PCP Family Medicine; Referring Provider Family Medicine; Visit Provider Family Medicine
DX: E06.3 Autoimmune thyroiditis (principal)
CPT/HCPCS: 76536

== ENCOUNTER → 2025-02-14 | Outpatient (CLI) | payer OTHER, SELFPAY ==
[2025-02-14 17:48] LABS: Free T3 2.7 pg/mL (2.18-3.98)
== END | disposition home or self-care (01) ==
LOC: LAB 16:25
PROVIDERS: PCP Family Medicine; Referring Provider Family Medicine; Visit Provider Family Medicine
DX: E06.3 Autoimmune thyroiditis (principal)
CPT/HCPCS: 36415; 84439; 84443; 84481

== ENCOUNTER → 2025-05-15 | Outpatient (CLI) | payer OTHER, SELFPAY ==
--- NOTE | 2025-05-15 08:52 | RAD_ITS ---
PROCEDURE: CHEST PA AND LATERAL 05/15/2025 REASON FOR EXAM: PRE-OP CLEARANCE FOR SURGERY TECHNIQUE: CHEST PA AND LATERAL COMPARISON: None FINDINGS: No focal consolidation. No pleural effusion or pneumothorax. Cardiac silhouette is within normal limits. No acute fractures RAD/Chest PA and Lateral IMPRESSION: No focal consolidations Reading Location: [id number]
[2025-05-15 12:35] LABS: Hematocrit 43.5 % (37-47); Hemoglobin 14.4 g/dL (12.0-15.0); Immature Granulocytes Count 0.020 X10^3/uL (0.0-0.0); Mean Corp Hgb Conc 33.1 g/dL (32-36); Mean Corpuscular Volume 90.1 fL (81-99); Mean Platelet Vol. 10.5 fl (6.2-12.0); NRBC Flagged by Analyzer 0 % (0-5); Platelet Count 340 K/mm3 (150-450); RBC Distribution Width CV 13.6 % (11.6-14.6); RBC Distribution Width SD 44.6 fl (35.1-43.9); Red Blood Count 4.83 M/mm3 (4.2-5.4); White Blood Count 6.5 K/mm3 (4.4-11.0)
[2025-05-15 12:56] LABS: AST(SGOT) 23 U/L (<=31); Alanine Aminotransfer ALT/SGPT 17 U/L (<=34); Albumin, Serum 4.9 g/dL (3.5-5.0); Alkaline Phosphatase 64 U/L (35-104); Anion Gap 13 (5-15); BUN 10 mg/dL (4-19); BUN/Creat Ratio 12.7 RATIO (10-20); Calcium,Total 10.1 mg/dL (7.6-11.0); Carbon Dioxide 26.0 mmol/L (21.0-32.0); Chloride 101 mmol/L (98-108); Globulin 2.9 g/dL (2.2-4.2); Glucose 83 mg/dL (70-99); Potassium 3.8 mmol/L (3.3-5.1)
== END | disposition home or self-care (01) ==
LOC: MTLAB 08:50
PROVIDERS: PCP Family Medicine
DX: Z01.818 Encounter for other preprocedural examination (principal); E04.1 Nontoxic single thyroid nodule
CPT/HCPCS: 36415; 71046; 80053; 85025